=== PATIENT | female | born 1960 | race Caucasian/White ===

== ENCOUNTER 2021-10-26 10:29 | Outpatient (REF) | payer OTHER, SELFPAY ==
[2021-10-26 14:45] LABS: Thyroid Stimulating Hormone 2.27 uIU/mL (0.32-4.0)
[2021-10-26 15:15] LABS: T4 Thyroxine 6.5 ug/dL (4.5-12.0)
== END 2021-10-26 10:30 | disposition home or self-care (01) ==
LOC: HO.10HDL 10:29
PROVIDERS: Absent Provider Internal Medicine; Visit Provider Internal Medicine
DX: R13.10 Dysphagia, unspecified (principal); R19.4 Change in bowel habit
CPT/HCPCS: 36415; 84436; 84443

== ENCOUNTER 2021-10-27 13:04 | Outpatient (REF) | payer OTHER, SELFPAY ==
[2021-10-27 14:57] LABS: Leukocytes Stool Qualitative NEGATIVE (NEGATIVE)
== END 2021-10-27 13:05 | disposition home or self-care (01) ==
LOC: HO.10HDLNP 13:04
PROVIDERS: Absent Provider Internal Medicine; Visit Provider Internal Medicine Gastroenterology
DX: R13.10 Dysphagia, unspecified (principal); R19.4 Change in bowel habit
CPT/HCPCS: 87045; 87046; 87177; 87209; 89055

== ENCOUNTER 2021-11-08 06:25 | Day surgery (SDC) | payer OTHER, SELFPAY ==
[2021-11-03 09:56] VITALS: BMI 23.1
--- NOTE | 2021-11-07 11:02 | HO.ANESPROP2 ---
Documented by User: Lupis Jones NP 11/07/21 11:03 HPI - Anesthesia Eval Consult details Narrative: 61yo F for Upper Endoscopy and Colonoscopy [facility] Past Medical History Medical History (Updated 11/03/21 @ 09:56 by Nohelia Newsome RN) GERD (gastroesophageal reflux disease) HTN (hypertension) Schatzki's ring Surgical History Surgical History (Updated 11/03/21 @ 09:54 by Nohelia Newsome RN) H/O colonoscopy History of esophagogastroduodenoscopy (EGD) Hx of hysterectomy Hx of wisdom tooth extraction Social History Social History Patient Tobacco Use Status: Never used Tobacco Second Hand Smoke Exposure: No Use of substances other than those prescribed or required for medical reasons: No Are you DNR?: No Advance Directives: No Advance Directives Information Provided: Yes Advance Directives on File: No Meds Allergies Allergy/AdvReac Type Severity Reaction Status Date / Time aspirin Allergy Unknown Unknown Verified 11/03/21 09:54 Penicillins Allergy Unknown Unknown Verified 11/03/21 09:54 Home Medications Medication Instructions Recorded Confirmed Last Taken Type fexofenadine 60 mg tablet (Barb 60 mg PO BID 11/03/21 11/03/21 Unknown History Allergy) Exam Exam Date and Time: November 07, 2021 1102 Height,Weight and Vital Signs: Height 5 ft 7 in Weight 67.132 kg Assessment and Plan Assessment Anesthesia Assessment: Chart Reviewed Documented by User: Alanis Wray MD 11/08/21 07:39 [facility] Past Medical History Medical History (Updated 11/03/21 @ 09:56 by Nohelia Newsome RN) GERD (gastroesophageal reflux disease) HTN (hypertension) Schatzki's ring Functional capacity: independent ambulation Patient : No Family History Family history of problems with anesthesia: No Surgical History Surgical History (Updated 11/03/21 @ 09:54 by Nohelia Newsome RN) H/O colonoscopy History of esophagogastroduodenoscopy (EGD) Hx of hysterectomy Hx of wisdom tooth extraction History of Problems with Anesthesia: No Social History Social History Patient Tobacco Use Status: Never used Tobacco Second Hand Smoke Exposure: No Use of substances other than those prescribed or required for medical reasons: No Are you DNR?: No Advance Directives: No Advance Directives Information Provided: Yes Advance Directives on File: No Meds Allergies Allergy/AdvReac Type Severity Reaction Status Date / Time aspirin Allergy Unknown Unknown Verified 11/03/21 09:54 Penicillins Allergy Unknown Unknown Verified 11/03/21 09:54 Home Medications Medication Instructions Recorded Confirmed Last Taken Type fexofenadine 60 mg tablet (Barb 60 mg PO BID 11/03/21 11/03/21 Unknown History Allergy) Exam Airway Mallampati Class: II TM Dist: >3cm Neck ROM: Full Heart: RRR Lungs: CTA Assessment and Plan Final Anesthetic Review Family History of Problems with Anesthesia: No History of Problems with Anesthesia: No NPO: Yes ASA Class: II Final Preanesthetic Review: No Changes in Pt Med Stat, Meds/Allgs Chart Reviewed, Consent Obtained/Reviewed and Anes Risks/Benef Reviewed Patient Risk: Low Procedure Risk: Low Anesthetic Plan Anesthetic Plan: MAC: Disposition: Standard PACU
[2021-11-08 06:48] VITALS: BP 115/72; PULSE 84; RESP 16; TEMP 37.1; O2SAT 98
[2021-11-08] MEDS: Lactated Ringers 1,000 ML 100 ML IVCONT (06:53)
--- NOTE | 2021-11-08 07:23 | MHC.SHP ---
Pre-Procedural Eval Section A Date of Service: 11/08/21 The patient is an INPATIENT: No Changes since office visit: No Cold of Flu in the past 2 weeks, No New Medical Problems, No Changes in Medication and No Patient answered all questions The History & Physical has been completed within 30 days and I have reviewed it.: Yes Section B Chief Complaint: dysphagia,signs involving digestive system Allergies: Allergies Allergy/AdvReac Type Severity Reaction Status Date / Time aspirin Allergy Unknown Unknown Verified 11/03/21 09:54 Penicillins Allergy Unknown Unknown Verified 11/03/21 09:54 Plan I have reviewed the history and physical and performed a pertinent physical examination on my patient. No changes have occurred unless specified.
--- NOTE | 2021-11-08 08:14 | PM.OP ---
Brief Operative Note Date of Service: 11/08/21 Pre-op diagnosis: dysphagia change in bowels Post-op diagnosis: same (schatzki ring and colon polyp) Surgeon: Nawaf Hale Anesthesia: MAC Was an [employer] used for this Procedure?: No Estimated blood loss (mL): 5 Pathology: other (bxs antrum, duodenum, egj, ti, sigmoid, and rectal polyp) Condition: stable Disposition: PACU
[2021-11-08 08:18] VITALS: BP 99/49; PULSE 88; RESP 16; TEMP 36.6; O2SAT 97
[2021-11-08 08:33] VITALS: BP 120/70; PULSE 77; RESP 16; TEMP 36.6; O2SAT 97
--- NOTE | 2021-11-08 10:00 | OP_ITS ---
SURGEON: Nawaf Hale MD INDICATIONS: Dysphagia and change in bowel function with weight loss. PREOPERATIVE DIAGNOSIS: POSTOPERATIVE DIAGNOSIS: PROCEDURE PERFORMED: 1. Upper endoscopy with biopsy and balloon dilation. 2. Colonoscopy to the terminal ileum with biopsy. ESTIMATED BLOOD LOSS: COMPLICATIONS: ANESTHESIA: ASSISTANTS: SPECIMENS: MEDICATIONS: Monitored anesthesia care. DESCRIPTION OF PROCEDURE: History and physical performed. Risk and benefits of the procedure were explained to the patient and informed consent was obtained. Patient was placed in the left lateral decubitus position. A digital rectal exam was performed prior to the colonoscopy and was normal. First, the Olympus video gastroscope was introduced into the esophagus, stomach, and duodenum. Examination was performed and the scope was removed. She was repositioned for colonoscopy. The Olympus pediatric video colonoscope was introduced into the rectum and advanced to the cecum without difficulty. The cecum was identified by transillumination, palpation, and identification of ileocecal valve. Examination was performed and the scope was removed. She tolerated the both procedures well, returned to the Recovery in stable condition. FINDINGS: Upper Endoscopy: Esophagus: The esophagus was normal. There was no esophagitis. There was a nonobstructive Schatzki ring. The scope easily passed through this. Stomach: The stomach showed no evidence of masses, ulcers, or polyp. Duodenum: The bulb and second portion were normal. Balloon dilation of the Schatzki ring to 20 mm was performed through the scope. Balloon x2 inflations were 60 seconds at the EG junction. This did not have a noticeable effect on the lower esophageal sphincter. Biopsies were obtained from the duodenum, antrum, and EG junction. Colonoscopy: The terminal ileum was examined and appeared normal. This was biopsied. The visualized colonic mucosa was normal without evidence of masses or ulcers. The single rectal polyp was identified measuring less than 5 mm, which was removed with a biopsy forceps. Random sigmoid biopsies were obtained to evaluate for microscopic colitis. IMPRESSION: 1. Schatzki ring, status post balloon dilation. 2. Colon polyp. RECOMMENDATIONS: Follow up the biopsy results. MD SUZIE Crump/ARTURO / [id number]
== END 2021-11-08 09:17 | disposition home or self-care (01) ==
PROVIDERS: PCP Internal Medicine; Visit Provider Internal Medicine Gastroenterology
PROC: (CPT 45380; principal; 2021-11-08 07:30)
DX: R19.4 Change in bowel habit (principal); Z86.010 Personal history of colon polyps; K62.1 Rectal polyp; R13.19 Other dysphagia; R63.4 Abnormal weight loss; K22.2 Esophageal obstruction; K21.9 Gastro-esophageal reflux disease without esophagitis; I10 Essential (primary) hypertension; Z79.899 Other long term (current) drug therapy; Z88.0 Allergy status to penicillin; Z88.8 Allergy status to other drugs, medicaments and biological substances
CPT/HCPCS: 45380; 43249; 43239; 88305; 88342; C1726

== ENCOUNTER 2021-11-18 10:21 | Outpatient (REF) | payer OTHER, SELFPAY ==
--- NOTE | ~2021-11-18 | FL_ITS ---
EXAMINATION: FL BARIUM SWALLOW CLINICAL INFORMATION: Dysphagia COMPARISON: None TECHNIQUE: Barium swallow examination is performed using fluoroscopic evaluation in addition to multiple fluoroscopic spot views. The patient is imaged both upright and prone and using both thick and thin sulfate along with effervescent granules. Fluoroscopy time: 5.4 minutes DAP: 10.857 Gy-cm2 Images: 69 FINDINGS: After oral administration of thick barium and barium-coated turkey in the upright view, there is normal propagation of bolus from the oral cavity through the pharynx, esophagus into stomach. There are tertiary peristalsis seen during the exam suggestive of dysmotility or presbyesophagus. No concentric narrowing or stricture visualized at this time. No extrinsic compression. On oral administration of barium tablet, there is normal transit through the esophagus without any obstruction or narrowing. On placing patient prone lying and oral administration of thin barium, there is good distention of the esophagus without any intraluminal filling defect. FL/FL barium swallow IMPRESSION: Findings suggestive of dysmotility in the mid and distal esophagus, likely presbyesophagus. No obstructive lesion, stricture or extrinsic compression seen.
== END 2021-11-18 10:22 | disposition home or self-care (01) ==
LOC: HO.XRAY 10:21
PROVIDERS: PCP Internal Medicine; Visit Provider Internal Medicine Gastroenterology
DX: R13.10 Dysphagia, unspecified (principal); R19.5 Other fecal abnormalities
CPT/HCPCS: 74220

== ENCOUNTER 2023-11-27 06:58 | Day surgery (SDC) | payer OTHER, SELFPAY ==
[2023-11-22 08:12] VITALS: BMI 26.6
[2023-11-27 07:45] VITALS: BMI 27.2
--- NOTE | 2023-11-27 07:56 | P.CONAN_ITS ---
FORMERLY [facility] Past Medical History Medical History (Updated 11/27/23 @ 07:43 by Jennie Garcia RN) Mitral valve prolapse Idiopathic urticaria GERD (gastroesophageal reflux disease) HTN (hypertension) Schatzki's ring Family History Family history of problems with anesthesia: No Surgical History Surgical History (Updated 11/03/21 @ 09:54 by Nohelia Newsome RN) Hx of wisdom tooth extraction Hx of hysterectomy H/O colonoscopy History of esophagogastroduodenoscopy (EGD) History of Problems with Anesthesia: No Social History Social History Patient Tobacco Use Status: Former Tobacco user Second Hand Smoke Exposure: No Use of substances other than those prescribed or required for medical reasons: No Are you DNR?: No Advance Directives: No Advance Directives Information Provided: Yes Meds Allergies Allergy/AdvReac Type Severity Reaction Status Date / Time aspirin Allergy Severe Anaphylaxis Verified 11/27/23 07:44 Penicillins Allergy Severe Anaphylaxis Verified 11/27/23 07:44 Home Medications Medication Instructions Recorded Confirmed Last Taken Type No Known Home Meds 11/22/23 11/22/23 Unknown History Exam Height,Weight and Vital Signs: Height 5 ft 7 in Weight 78.698 kg Airway Mallampati Class: II TM Dist: >3cm Neck ROM: Full Assessment and Plan Assessment Anesthesia Assessment: Anesthesia Plan Discussed and Chart Reviewed Final Anesthetic Review Family History of Problems with Anesthesia: No History of Problems with Anesthesia: No NPO: Yes ASA Class: II Final Preanesthetic Review: No Changes in Pt Med Stat, Meds/Allgs Chart Reviewed, Consent Obtained/Reviewed and Anes Risks/Benef Reviewed Patient Risk: Low Procedure Risk: Low Anesthetic Plan Anesthetic Plan: TIVA Disposition: Standard PACU
[2023-11-27 08:00] VITALS: BP 122/69; PULSE 76; RESP 16; TEMP 36.7; O2SAT 97
[2023-11-27] MEDS: Lactated Ringers 1,000 ML 80 ML IVCONT (08:07)
--- NOTE | 2023-11-27 08:09 | MHC.SHP ---
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 Details of Present Illness: see H&P no changes Relevant Family History (Specify if Yes): No Relevant Social History: None Present Medications: None Medical History: No relevant PMH History of Previous Operations: No relevant previous surgery Allergies: Allergies Allergy/AdvReac Type Severity Reaction Status Date / Time aspirin Allergy Severe Anaphylaxis Verified 11/27/23 07:44 Penicillins Allergy Severe Anaphylaxis Verified 11/27/23 07:44 Review of Systems Sugical H&P ROS: Negative: Constitution, Cardiovascular, Respiratory, Neurological, Psychiatric, Hem-Onc, Allergic/Immunologic, Gastrointestinal, Genitourinary, Musculoskeletal, Integumentary, Endocrine and Eyes/Ears/Nose/Throat Exam Surgical H&P Exam: Normal: HEENT, Normal: Heart, Normal: Lungs, Normal: Extremities, Normal: Abdomen, Normal: Skin and Normal: Neurological Plan Diagnosis/Plan: Unchanged I have reviewed the history and physical and performed a pertinent physical examination on my patient. No changes have occurred unless specified. Time Spent With Patient Time: Total time managing care of this patient today ____ minutes.
[2023-11-27 08:39] VITALS: BP 96/51; RESP 16; O2SAT 98
[2023-11-27 08:54] VITALS: BP 105/67; PULSE 75; RESP 16; TEMP 36.6; O2SAT 95
--- NOTE | 2023-11-27 08:56 | OP_ITS ---
DATE OF SERVICE: 11/27/2023 SURGEON: Nawaf Hale MD INDICATIONS: Hankins's esophagus. PREOPERATIVE DIAGNOSIS: POSTOPERATIVE DIAGNOSIS: PROCEDURE PERFORMED: Upper endoscopy with biopsy. ESTIMATED BLOOD LOSS: COMPLICATIONS: ANESTHESIA: Medications; monitored anesthesia care. ASSISTANTS: SPECIMENS: DESCRIPTION OF PROCEDURE: A history and physical performed. The risks and benefits of the procedure were explained to the patient. Informed consent was obtained. The patient was placed in the left lateral decubitus position. The Olympus video gastroscope was introduced into the esophagus, stomach, and duodenum. Examination was performed. The scope was removed. She tolerated the procedure well and was returned to recovery in stable condition. FINDINGS: Esophagus: There was nonobstructive Schatzki ring at the EG junction with a small area of Hankins esophagus measuring less than 1 cm. Biopsies were obtained from the EG junction. There were no raised lesions or ulcerated areas. There was no esophagitis. Stomach, there was a small sliding hiatal hernia. Duodenum, the bulb and 2nd portion were normal. Biopsies were obtained from the EG junction. IMPRESSION: Hankins esophagus. RECOMMENDATION: Follow up the biopsy results. MD SUZIE Crump/ARTURO / [id number]
== END 2023-11-27 09:21 | disposition home or self-care (01) ==
PROVIDERS: PCP Internal Medicine; Visit Provider Internal Medicine Gastroenterology
PROC: 0DJ08ZZ Inspection of Upper Intestinal Tract, Via Natural or Artificial Opening Endoscopic (ICD-10-PCS; CPT 43235; principal; 2023-11-27 08:10)
DX: K22.70 Barrett's esophagus without dysplasia (principal); K22.2 Esophageal obstruction; K21.9 Gastro-esophageal reflux disease without esophagitis; K44.9 Diaphragmatic hernia without obstruction or gangrene; I10 Essential (primary) hypertension; Z88.0 Allergy status to penicillin; Z88.8 Allergy status to other drugs, medicaments and biological substances; Z87.891 Personal history of nicotine dependence
CPT/HCPCS: 43239; 88305; 88313; J2704